=== PATIENT | male | born 1950 | race Caucasian/White ===

== ENCOUNTER 2019-05-05 08:17 | Day surgery (SDC) | payer BC ==
[2019-05-05] VITALS (10 sets, daily range): BP systolic 123–157; BP diastolic 79–98
[~2019-05-05] VITALS: Ht 190.5 cm; Wt 81.6 kg
[~2019-05-05 08:17] MED LIST: ACTOS15 MG ORAL; ASPIR 8181 MG ORAL; CIALIS5 MG PO; COZAAR50 MG ORAL; LIPITOR20 MG ORAL; METFORMIN HCL500 M1 ORAL; PHENAZOPYRIDIN100 MG ORAL; RAPAFLO8 MG ORAL
--- NOTE | 2019-05-05 09:13 | Pre-Procedure Note/Attestation ---
Pre-Procedure Note/Attestation Complete Prior to Procedure Planned Procedure: not applicable Procedure Narrative: IPP Indications for Procedure Pre-Operative Diagnosis: impotence Attestation I attest that I discussed the nature of the procedure; its benefits; risks and complications; and alternatives (and the risks and benefits of such alternatives ), prior to the procedure, with the patient (or the patient's legal lead customer service representative). I attest that, if there was a reasonable possibility of needing a blood transfusion, the patient (or the patient's legal lead customer service representative) was given the [facility] standardized written summary, pursuant to the [place] Blood Safety Act ([place] Health and Safety Code # 1645, as amended). I attest that I re-evaluated the patient just prior to the surgery and that there has been no change in the patient's H&P, except as documented below: Sanjiv Camacho MD May 05, 2019 09:13
[2019-05-05] MEDS ORDERED: LR 1000ml 1,000 ML IVLG SCH (10:24)
[2019-05-05] MEDS ORDERED: Meperidine 25mg/0.5ml Inj (FOR RIGORS ONLY) IV PRN (10:30)
[2019-05-05] MEDS ORDERED: Hydromorphone 0.5mg/0.5ml inj IVP PRN (10:30)
[2019-05-05] MEDS ORDERED: HYDROcodone/Acetamin 5/325 tab ORAL PRN ×3 (10:30→15:00)
[2019-05-05] MEDS ORDERED: HYDROcodone/Acetamin 7.5/325 tab ORAL PRN (10:30)
[2019-05-05] MEDS ORDERED: Acetaminophen (Non formulary) 100 ML IV ONE (10:30)
[2019-05-05] MEDS ORDERED: Metoclopramide 10mg/2ml Inj IVP PRN (10:30)
[2019-05-05] MEDS ORDERED: oxyCODONE HCL/Acetaminophen 5/325mg ORAL PRN (10:30)
[2019-05-05] MEDS ORDERED: Atropine Sulfate 0.4mg/ml inj IVP PRN (10:30)
[2019-05-05] MEDS ORDERED: fentaNYL 100 mcg/2 mL IV PRN (10:30)
[2019-05-05] MEDS ORDERED: Labetalol 5mg/ml 20ml vial IV PRN (10:30)
[2019-05-05] MEDS ORDERED: LORazepam Inj 2mg/ml 1ml IV PRN (10:30)
[2019-05-05] MEDS ORDERED: Ketorolac 30mg Inj IV PRN ×2 (10:30)
[2019-05-05] MEDS ORDERED: DiphenhydrAMINE 50mg/ml Inj IVP PRN (10:30)
[2019-05-05] MEDS ORDERED: Midazolam 2mg/2ml Inj IVP PRN (10:30)
--- NOTE | 2019-05-05 10:31 | Anethesia Preoperative Eval ---
Anesthesia Pre-op PMH/ROS General Date of Evaluation: May 05, 2019 Time of Evaluation: 11:24 Anesthesiologist: Jairo ASA Score: ASA 3 Mallampati Score Class I : Soft palate, uvula, fauces, pillars visible Class II: Soft palate, uvula, fauces visible Class III: Soft palate, base of uvula visible Class IV: Only hard plate visible Mallampati Classification: Class II Surgeon: Doug Diagnosis: Impotence Surgical Procedure: Penile Implant Anesthesia History: none Family History: no anesthesia problems Allergies: Coded Allergies: No Known Allergies (Unverified , 05/05/19) Medications: see eMAR Patient NPO?: Yes Past Medical History Cardiovascular: Reports: HTN, other - HL Gastrointestinal/Genitourinary: Reports: other - Renolithiasis Neurologic/Psychiatric: Reports: CVA Endocrine: Reports: DM Anesthesia Pre-op Phys. Exam Physician Exam Last Vital Signs Date Time Temp Pulse Resp B/P (MAP) Pulse Ox O2 Delivery O2 Flow Rate FiO2 05/05/19 08:56 Room Air 05/05/19 08:51 97.4 82 18 127/81 99 Constitutional: NAD Neurologic: CN 2-12 intact Cardiovascular: RRR Respiratory: CTA Gastrointestinal: S/NT/ND Airway Exam Mallampati Score: Class II MO: full ROM: limited Teeth: missing, intact Anesthesia Pre-op A/P Risk Assessment & Plan Assessment: ASA 3 Plan: GA, SED, GlideScope Go Status Change Before Surgery: No Pre-Antibiotics Dru Gram Vancomycin, 80 Mg Gentimicin IV Given Within 1 Hr of Incision: Yes Time Given: 11:36 Wilfredo Gill MD May 05, 2019 10:31
--- NOTE | 2019-05-05 10:35 | Immediate Post-Op Evaluation ---
Immediate Post-Op Evalulation Immediate Post-Op Evalulation Procedure: Penile Implant Date of Evaluation: May 05, 2019 Time of Evaluation: 13:24 IV Fluids: 1000 LR Blood Products: 0 Estimated Blood Loss: 25 Urinary Output: 200 Blood Pressure Systolic: 157 Blood Pressure Diastolic: 98 Pulse Rate: 82 Respiratory Rate: 16 O2 Sat by Pulse Oximetry: 100 Temperature (Fahrenheit): 97.4 Pain Score (1-10): 2 Nausea: No Vomiting: No Complications 0 Patient Status: awake, reacts, patent, extubated, none Hydration Status: adequate Dru Gram Vancomycin, 80 Mg Gentamicin IV Given Within 1 Hr of Incision: Yes Time Given: 11:36 Wilfredo Gill MD May 05, 2019 10:35
--- NOTE | 2019-05-05 10:35 | 48 Hour Post Anesthesia Eval ---
Post Anesthesia Evaluation Procedure: Penile Implant Date of Evaluation: May 05, 2019 Time of Evaluation: 15:43 Blood Pressure Systolic: 134 0: 78 Pulse Rate: 76 Respiratory Rate: 18 Temperature (Fahrenheit): 98 O2 Sat by Pulse Oximetry: 100 Airway: patent Nausea: No Vomiting: No Pain Intensity: 2 Hydration Status: adequate Cardiopulmonary Status: Stable Mental Status/LOC: patient returned to baseline Follow-up Care/Observations: 0 Post-Anesthesia Complications: 0 Follow-up care needed: ready to discharge Wilfredo Gill MD May 05, 2019 10:35
[2019-05-05] MEDS ORDERED: Vancomycin 1gm vial IVPB ONE (10:41)
[2019-05-05] MEDS ORDERED: Bacitracin 50000 Units Vial ONE (11:13)
[2019-05-05] MEDS ORDERED: NeoSporin Gu Irrig 1ml Amp IRRIG ONE (11:13)
[2019-05-05] MEDS ORDERED: Bacitracin Oint 15gm Tube TOPIC ONE (11:13)
[2019-05-05] MEDS ORDERED: Lidocaine 1% MPF 10mg/ml 5ml ONE (11:14)
[2019-05-05] MEDS ORDERED: Propofol 200mg/20ml IV ONE (11:14)
[2019-05-05] MEDS ORDERED: fentaNYL 100 mcg/2 mL IV ONE (11:18)
[2019-05-05] MEDS ORDERED: Midazolam 2mg/2ml Inj ONE (11:18)
[2019-05-05] MEDS ORDERED: LR 1000ml ONE (11:30)
[2019-05-05] MEDS ORDERED: Sterile Water Irrig 1000ml IRRIG ONE (11:30)
[2019-05-05] MEDS ORDERED: Neostigmine 1mg/ml 10ml Inj ONE (11:30)
[2019-05-05] MEDS ORDERED: NS Irrig 1000ml ONE (11:30)
[2019-05-05] MEDS ORDERED: NS Irrig 1000ml IRRIG ONE (11:55)
[2019-05-05] MEDS ORDERED: Ketorolac 30mg Inj ONE (12:37)
[2019-05-05] MEDS ORDERED: Glycopyrrolate 0.2mg/ml 1ml Vial ONE (12:38)
[2019-05-05] MEDS ORDERED: Tylenol #3 tab (300mg/30mg) ORAL PRN ×2 (13:00→15:00)
[2019-05-05] MEDS ORDERED: D5 1/2NS 1,000 ML IV SCH (13:00)
[2019-05-05] MEDS ORDERED: HYDROmorphone 1mg/ml Carpuject SUBQ PRN (13:00)
--- NOTE | 2019-05-05 13:04 | Brief Operative Note ---
Immediate Post Operative Note Operative Note Pre-op Diagnosis: impotence Procedure: IPP Post-op Diagnosis: same Post-op Diagnosis: same as pre-op Surgeon: Radu Camacho Anesthesia: general Specimen: none Complications: none Condition: stable Fluids: 500 Estimated Blood Loss: minimal Implant(s) used?: Yes Sanjiv Camacho MD May 05, 2019 13:04
--- NOTE | 2019-05-05 16:44 | NUR ---
1355 received from PACU 14:05 Dejesus cath discontinued as ordered. Oral Fluids encouraged consumed at least 1200 ml. IVF 1 L followed up and Uses the bathroom multiple times , no urge of urinating. small amount of blood noted penis exit site. 16:15 still no urge of urinating, feels some pressure. Dr. Camacho called ordered bladder scanned shows 140 ml. called again ordered to DC patient home. Patient instructed to increase more po liquids intake at home and in 5 hours if there's no urine to call Dr. Camacho. verbalized understanding 16:45 Discharge patient home in stable condition.
--- NOTE | 2019-05-06 22:00 | Operative Note - Dictated ---
DATE OF OPERATION: 05/05/2019 PREOPERATIVE DIAGNOSIS: Organic impotence. POSTOPERATIVE DIAGNOSIS: Organic impotence. OPERATION: Implantation of 3-piece penile prosthesis. TESTS SUPERINTENDENT: Sanjiv Camacho M.D. ANESTHESIA: General. FINDINGS: Obstructed corpora. INDICATIONS FOR SURGERY: A long time patient of mine that tried multiple oral medications, injections without any success. Treatment options explained to him in great length including all potential complications. He signed the consent. DESCRIPTION OF PROCEDURE: He was brought to the operating room, placed in supine position. Prepped and draped in standard fashion. Under general anesthesia, a penoscrotal incision was made. Bilateral corpora were mobilized. Dejesus catheter was placed. Corpora was opened 2 cm and dilated to 12-Azeri with [employer] dilators. After that, probably 1.5 cm penile prosthesis was placed. The cylinders were sutured and inflated in appropriate position. After that, placed in the retrovesical space through the external inguinal ring and filled with 75 mL of normal saline. Pump was placed into the subdartos position and reconnected using the standard connectors. Prosthesis was tested. It was working appropriately. Wound was closed in 3 layers, subcuticular closure for the skin. Sponge count, instrument count was correct. ESTIMATED BLOOD LOSS: Approximately 10 mL. Sanjiv Camacho M.D. DR: VALENTINE JOB#: [id number] CC:
== END 2019-05-05 16:50 | disposition home or self-care (01) ==
LOC: SUR 08:17
DX: N52.9 Male erectile dysfunction, unspecified (principal); I10 Essential (primary) hypertension; E11.9 Type 2 diabetes mellitus without complications; Z86.73 Personal history of transient ischemic attack (TIA), and cerebral infarction without residual deficits
CPT/HCPCS: 54405; C1813; J0131; J1885; J2250; J2405; J2704; J2710; J3010; J3370; J7120; 94003; 94150